=== PATIENT | female | born 1975 | race Hispanic/Latino ===

== ENCOUNTER 2018-09-14 05:26 | Inpatient (IN) | payer OTHER ==
[2018-09-14 05:26] VITALS: BMI 32.8
[2018-09-14] MEDS ORDERED: levETIRAcetam 1000mg/100ml NS 100 ML IV ONE (06:11)
--- NOTE | 2018-09-14 06:21 | ED PDOC ---
Arrival/HPI - General Chief Complaint: Seizure Historian: Patient - History of Present Illness Narrative History of Present Illness (Text): 09/14/18 06:18 42 year old female, with a past medical history of seizures and diabetes, presents to the emergency department for evaluation status post seizure. Patient states she was at work at [employer] when her coworkers told her she had a seizure. Patient states she was diagnosed with seizure disorder but has been seizure free, and off medication for 5 years. Patient denies any complaints except that her left pinky hurts. Patient denies any fevers, chills, headache, dizziness, chest pain, shortness of breath, cough, abdominal pain, nausea, vomiting, diarrhea, back pain, neck pain, or any other complaint. Time/Duration: Prior to Arrival Symptom Course: Improving Context: Work Past Medical History - Provider Review Nursing Documentation Reviewed: Yes - Infectious Disease Hx of Infectious Diseases: None - Tetanus Immunization Tetanus Immunization: Unknown - Past Medical History Past Medical History: No Previous - Cardiac Hx Cardiac Disorders: No - Pulmonary Hx Respiratory Disorders: No - Neurological Hx Seizures: Yes - HEENT Hx HEENT Disorder: Yes (pt is hard of hearing) - Renal Hx Renal Disorder: No - Endocrine/Metabolic Hx Endocrine Disorders: No - Hematological/Oncological Hx Blood Disorders: No - Integumentary Hx Dermatological Disorder: No - Musculoskeletal/Rheumatological Hx Musculoskeletal Disorders: No - Gastrointestinal Hx Gastrointestinal Disorders: No - Genitourinary/Gynecological Hx Genitourinary Disorders: No - Psychiatric Hx Depression: No Hx Emotional Abuse: No Hx Physical Abuse: No Hx Substance Use: No - Surgical History Hx Tonsillectomy: Yes - Anesthesia Hx Anesthesia: Yes Hx Anesthesia Reactions: No Hx Malignant Hyperthermia: No - Suicidal Assessment Feels Threatened In Home Enviroment: No Family/Social History - Physician Review Nursing Documentation Reviewed: Yes Family/Social History: No Known Family HX Smoking Status: Light Smoker < 10 Cigarettes Daily Hx Alcohol Use: No Hx Substance Use: No Allergies/Home Meds Allergies/Adverse Reactions: Allergies No Known Allergies Allergy (Verified 04/15/12 06:52) Home Medications: Home Meds Medication Instructions Recorded Confirmed Cetirizine HCl [Zyrtec Allergy] 10 mg PO DAILY 09/14/18 09/14/18 MetFORMIN ER [Glucophage XR] 500 mg PO DAILY 09/14/18 09/14/18 Review of Systems - Physician Review All systems were reviewed & negative as marked: Yes - Review of Systems Constitutional: absent: Fevers, Night Sweats Respiratory: absent: SOB, Cough Cardiovascular: absent: Chest Pain Gastrointestinal: absent: Abdominal Pain, Diarrhea, Nausea, Vomiting Musculoskeletal: Myalgias (left pinky pain). absent: Back Pain, Neck Pain Neurological: Seizure. absent: Headache, Dizziness Physical Exam Vital Signs Reviewed: Yes Vital Signs Temp Pulse Resp BP 09/14/18 05:44 127/68 09/14/18 05:36 98.1 F 115 H 18 Temperature: Afebrile Blood Pressure: Normal Pulse: Tachycardic Respiratory Rate: Normal Appearance: Positive for: Well-Appearing, Non-Toxic, Comfortable Pain Distress: None Mental Status: Positive for: Alert and Oriented X 3 - Systems Exam Head: Present: Atraumatic, Normocephalic Pupils: Present: PERRL Extroacular Muscles: Present: EOMI Conjunctiva: Present: Normal Mouth: Present: Moist Mucous Membranes Neck: Present: Normal Range of Motion Respiratory/Chest: Present: Clear to Auscultation, Good Air Exchange. No: Respiratory Distress, Accessory Muscle Use Cardiovascular: Present: Regular Rate and Rhythm, Normal S1, S2. No: Murmurs Abdomen: No: Tenderness, Distention, Peritoneal Signs Back: Present: Normal Inspection Upper Extremity: Present: Tenderness, Swelling (to the base of left pinky), Other (contusion). No: Cyanosis, Edema Lower Extremity: Present: Normal Inspection. No: Edema Neurological: Present: GCS=15, CN II-XII Intact, Speech Normal Skin: Present: Warm, Dry, Normal Color. No: Rashes Psychiatric: Present: Alert, Oriented x 3, Normal Insight, Normal Concentration Medical Decision Making ED Course and Treatment: 09/14/18 06:25 Impression: 42 year old female presents for evaluation of seizure Plan: -- CT Head -- EKG -- Labs -- Kepra -- Urinalysis -- Reassess and disposition Prior Visits: Notes and results from previous visits were reviewed. Progress Notes: 09/14/18 Pt signed out to Dr. Alfonso at shift change pending CT head, xray left hand and disposition. - RAD Interpretation Radiology Orders: 09/14/18 06:12 HEAD W/O CONTRAST [CT] Stat - Medication Orders Current Medication Orders: Levetiracetam (Keppra 1000mg/100ml Ns) 100 mls @ 440 mls/hr IV ONCE ONE Stop: 09/14/18 06:24 - Transfer of Care Patient signed out to Dr:: Kaden Pending radiology studies:: CT head; hand xray Other: dispo - Scribe Statement The provider has reviewed the documentation as recorded by the Scribe Tai Peña Provider Scribe Attestation: All medical record entries made by the Scribe were at my direction and personally dictated by me. I have reviewed the chart and agree that the record accurately reflects my personal performance of the history, physical exam, medical decision making, and the department course for this patient. I have also personally directed, reviewed, and agree with the discharge instructions and disposition. Disposition/Present on Arrival - Present on Arrival Any Indicators Present on Arrival: No History of DVT/PE: No History of Uncontrolled Diabetes: No Urinary Catheter: No History of Decub. Ulcer: No History Surgical Site Infection Following: None - Disposition Have Diagnosis and Disposition been Completed?: Yes Diagnosis: Finger fracture, Seizure, Mass of cerebellum Disposition: HOSPITALIZED Disposition Time: 07:00 Patient Plan: Admission Patient Problems: Current Active Problems Problem Status Onset Finger fracture Acute Mass of cerebellum Acute Seizure Acute Condition: STABLE
[2018-09-14 06:51] LABS: BASO # 0.05 K/mm3 (0.0-2.0); BASO % 0.5 % (0.0-3.0); EOS # 0.2 (0.0-0.7); EOS % 2.2 % (1.5-5.0); GRAN # 7.35 (1.4-6.5); GRAN % 78.1 % (50.0-68.0); HEMOGLOBIN 15.2 g/dL (12.0-16.0); LYMPH # 1.3 (1.2-3.4); LYMPH % 13.9 % (22.0-35.0); MEAN CELL VOLUME 93.2 fl (80.0-105.0); MEAN CORPUSCULAR HEMOGLOBIN 31.4 pg (25.0-35.0); MEAN CORPUSCULAR HGB CONC 33.7 g/dl (31.0-37.0); MEAN PLATELET VOLUME 9.3 fl (7.0-11.0); MONO # 0.5 (0.1-0.6); MONO % 5.3 % (1.0-6.0); RBC 4.84 10^6/uL (3.5-6.1); RED CELL DISTRIBUTION WIDTH 13.8 % (11.5-14.5); WHITE BLOOD COUNT 9.4 10^3/uL (4.5-11.0)
[2018-09-14 07:05] LABS: ALB/GLOB RATIO 1.1 (1.1-1.8); ALT/SGPT 34 U/L (7-56); AST/SGOT 55 U/L (14-36); BLOOD UREA NITROGEN 18 mg/dL (7-21); GFR NON-AFRICAN AMERICAN > 60
--- NOTE | 2018-09-14 07:32 | ED PDOC ---
Physical Exam Vital Signs Reviewed: Yes Vital Signs Temp Pulse Resp BP 09/14/18 05:44 127/68 09/14/18 05:36 98.1 F 115 H 18 Temperature: Afebrile Pulse: Tachycardic Respiratory Rate: Normal Appearance: Positive for: Well-Appearing Medical Decision Making ED Course and Treatment: 09/14/18 07:29 Patient endorsed to me by Dr. Barajas. Patient is a 42 year old female presenting to the emergency department for a seizure episode. Currently pending test and Head CT. 09/14/18 09:13 PROCEDURE: CT HEAD WITHOUT CONTRAST. HISTORY: seizure COMPARISON: None available. TECHNIQUE: Axial computed tomography images were obtained through the head/brain without intravenous contrast. Radiation dose: Total exam DLP = 948.57 mGy-cm. This CT exam was performed using one or more of the following dose reduction techniques: Automated exposure control, adjustment of the mA and/or kV according to patient size, and/or use of iterative reconstruction technique. FINDINGS: HEMORRHAGE: No intracranial hemorrhage. BRAIN: There is mass like lesion at the medial inferior aspect of the left cerebellum demonstrate mild increased density compared to the adjacent cerebellar parenchyma measures 2.6 centimeter in the AP diameter and 2.2 centimeter in the transverse diameter. The possibility of neoplasm or other etiology should be excluded. Further assessment by MRI is recommended. Mild volume loss is noted. VENTRICLES: Unremarkable. No hydrocephalus. CALVARIUM: Unremarkable. PARANASAL SINUSES: Unremarkable as visualized. No significant inflammatory changes. MASTOID AIR CELLS: Unremarkable as visualized. No inflammatory changes. OTHER FINDINGS: None. IMPRESSION: No evidence of acute intracranial hemorrhage. Suspicious for mass or brain lesion at the medial inferior aspect of the left cerebellum. Further assessment by enhanced MRI is suggested. Mild volume loss. The above findings were reported to the ER physician taking care of the patient at 9 a.m. on 09/14/2018. Dictator: Patito Samayoa MD 09/14/18 11:[address] shows ?mass. discussed with dr buitrago accepts. requests dr mera consult. finger splinted. - Lab Interpretations Lab Results: 09/14/18 06:30 09/14/18 06:30 Lab Results 09/14/18 06:30: Alcohol, Quantitative < 10 09/14/18 06:30: Sodium 138, Potassium 4.2, Chloride 104, Carbon Dioxide 27, Anion Gap 11, BUN 18, Creatinine 1.0, Est GFR ( Amer) > 60, Est GFR (Non- Af Amer) > 60, Random Glucose 113 H, Calcium 9.0, Phosphorus 1.5 L, Magnesium 2.1, Total Bilirubin 0.5, AST 55 H, ALT 34, Alkaline Phosphatase 104, Total Protein 7.6, Albumin 4.0, Globulin 3.6, Albumin/Globulin Ratio 1.1 09/14/18 06:30: WBC 9.4, RBC 4.84, Hgb 15.2, Hct 45.1, MCV 93.2, MCH 31.4, MCHC 33.7, RDW 13.8, Plt Count 352, MPV 9.3, Gran % 78.1 H, Lymph % (Auto) 13.9 L, [place] % (Auto) 5.3, Eos % (Auto) 2.2, Baso % (Auto) 0.5, Gran # 7.35 H, Lymph # (Auto) 1.3, [place] # (Auto) 0.5, Eos # (Auto) 0.2, Baso # (Auto) 0.05 - RAD Interpretation Radiology Orders: 09/14/18 06:12 HEAD W/O CONTRAST [CT] Stat - Medication Orders Current Medication Orders: Discontinued Medications Levetiracetam (Keppra 1000mg/100ml Ns) 100 mls @ 440 mls/hr IV ONCE ONE Stop: 09/14/18 06:24 Last Admin: 09/14/18 07:11 Dose: 440 mls/hr eMAR Start Stop Document 09/14/18 07:11 VALERIANO (Rec: 09/14/18 07:11 VALERIANO [id number]) Intravenous Solution Start Date 09/14/18 Start Time 07:11 End Date 09/14/18 End time 07:25 Total Infusion Time 14 Disposition/Present on Arrival - Present on Arrival Any Indicators Present on Arrival: No History of DVT/PE: No History of Uncontrolled Diabetes: No Urinary Catheter: No History of Decub. Ulcer: No History Surgical Site Infection Following: None - Disposition Have Diagnosis and Disposition been Completed?: Yes Diagnosis: Finger fracture, Seizure, Mass of cerebellum Disposition: HOSPITALIZED Disposition Time: 10:30 Condition: STABLE
[2018-09-14 08:39] LABS: URINE APPEARANCE CLEAR (CLEAR); URINE BILIRUBIN NEGATIVE (NEGATIVE); URINE BLOOD LARGE (NEGATIVE); URINE COLOR LIGHT YELLOW (YELLOW); URINE GLUCOSE (UA) NEGATIVE (NEGATIVE); URINE LEUKOCYTE ESTERASE NEGATIVE Leu/uL (NEGATIVE); URINE PROTEIN NEGATIVE mg/dL (<30 mg/dL); URINE UROBILINOGEN 0.2 E.U./dL (<1 E.U./dL)
[2018-09-14 09:00] LABS: URINE BACTERIA NEG (NEG); URINE EPITHELIAL CELLS 0 - 2 /hpf (0-5); URINE WBC 0 - 2 /hpf (0-6)
--- NOTE | 2018-09-14 09:07 | CT ---
Date of service: 09/14/2018 PROCEDURE: CT HEAD WITHOUT CONTRAST. HISTORY: seizure COMPARISON: None available. TECHNIQUE: Axial computed tomography images were obtained through the head/brain without intravenous contrast. Radiation dose: Total exam DLP = 948.57 mGy-cm. This CT exam was performed using one or more of the following dose reduction techniques: Automated exposure control, adjustment of the mA and/or kV according to patient size, and/or use of iterative reconstruction technique. FINDINGS: HEMORRHAGE: No intracranial hemorrhage. BRAIN: There is mass like lesion at the medial inferior aspect of the left cerebellum demonstrate mild increased density compared to the adjacent cerebellar parenchyma measures 2.6 centimeter in the AP diameter and 2.2 centimeter in the transverse diameter. The possibility of neoplasm or other etiology should be excluded. Further assessment by MRI is recommended. Mild volume loss is noted. VENTRICLES: Unremarkable. No hydrocephalus. CALVARIUM: Unremarkable. PARANASAL SINUSES: Unremarkable as visualized. No significant inflammatory changes. MASTOID AIR CELLS: Unremarkable as visualized. No inflammatory changes. OTHER FINDINGS: None. IMPRESSION: No evidence of acute intracranial hemorrhage. Suspicious for mass or brain lesion at the medial inferior aspect of the left cerebellum. Further assessment by enhanced MRI is suggested. Mild volume loss. The above findings were reported to the ER physician taking care of the patient at 9 a.m. on 09/14/2018.
[2018-09-14 09:15] LABS: BARBITURATES, UR NEGATIVE (NEGATIVE); BENZODIAZEPINES, UR NEGATIVE (NEGATIVE); OPIATES, UR NEGATIVE (NEGATIVE); PHENCYCLIDINE, UR NEGATIVE (NEGATIVE)
--- NOTE | 2018-09-14 10:54 | RAD ---
PROCEDURE: Left Hand Radiographs. She HISTORY: 5th digit swelling COMPARISON: None. FINDINGS: BONES: Acute fracture base of proximal phalanx left 5th metacarpal. There does not appear to be an intra-articular component. JOINTS: Normal. No osteoarthritic changes. SOFT TISSUES: Soft tissue swelling attests to the acuity of the fracture. OTHER FINDINGS: None. IMPRESSION: Acute fracture proximal phalanx left 5th digit.
[2018-09-14] MEDS: Insulin Reg-LOW-Coverage SC SCH ×2 (11:34→22:33)
--- NOTE | 2018-09-14 11:47 | US ---
Date of service: 09/14/2018 HISTORY: elevated lfts COMPARISON: None. TECHNIQUE: Sonographic evaluation of the abdomen. FINDINGS: LIVER: Measures 20.1 cm. Hepatopedal blood flow. Fatty infiltration manifest ultrasonographically as increased echogenicity of the liver parenchyma. No mass. No intrahepatic bile duct dilatation. GALLBLADDER: Unremarkable. No gallstones. COMMON BILE DUCT: Measures 5.1 mm. No stones. No dilatation. PANCREAS: Unremarkable as visualized. No mass. No ductal dilatation. RIGHT KIDNEY: Measures 4.3 x 10.6cm. Normal echogenicity. No calculus, mass, or hydronephrosis. LEFT KIDNEY: Measures 5.1 x 11.0cm. Normal echogenicity. No calculus, mass, or hydronephrosis. SPLEEN: Normal in size and contour. No mass. AORTA: No aneurysmal dilatation. IVC: Unremarkable. OTHER FINDINGS: None. IMPRESSION: Hepatomegaly, hepatic steatosis. Otherwise unremarkable study.
--- NOTE | 2018-09-14 12:06 | HP ---
DATE OF EXAM: 09/14/2018 HISTORY OF PRESENT ILLNESS: This 42-year-old female was examined in bed 3 of the emergency room at the [facility] on the morning of 09/14/2018. Present for the interview was her sister Deneen. The patient is a 42-year-old female with history of seizures and noncompliance with outpatient anti-epileptic medication. She is employed at the local [employer] and states that last evening when she presented to work during her shift, she felt fuzzy. 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 Apparently she was witnessed to have a grand mal seizure and was sent to the [facility] for further evaluation of the above. On further questioning of the patient, she states that she had followed up with Dr. Oziel Donis from Neurology in the past and had been placed on Keppra as an antiepileptic, but stopped taking the medication almost 5 years ago. PAST MEDICAL HISTORY: She also states that she has a history of type 2 diabetes mellitus for which she is prescribed metformin which she is also noncompliant with. The patient is obese. SOCIAL HISTORY: She states she is a nondrinker, nonsmoker, non IV drug misuser. ALLERGIES: DENIED ANY ALLERGIES TO MEDICATION. FAMILY HISTORY: Significant, that her father of lung cancer. Her mother of septic shock after a knee transplant and there is no other family member with seizure activity that she knows of. PAST SURGICAL HISTORY: The patient is status post tonsillectomy and denied any other surgical history. REVIEW OF SYSTEMS: CONSTITUTIONAL: She denied fever or chills. HEAD: Denied any knowledge of head trauma. EYES: No change in visual acuity. EARS: No hearing loss. THROAT: No swallowing difficulty. NECK: No stiffness. CARDIAC: No knowledge of hypertension or myocardial infarction. PULMONARY: No cough. No hemoptysis. GASTROINTESTINAL: No GERD. GENITOURINARY: No dysuria. SKIN: No rash. VASCULAR: No claudication. PSYCHOLOGIC: No knowledge of depression. ENDOCRINOLOGIC: Type 2 diabetes mellitus. The patient states she is actively menstruating at present. PHYSICAL EXAMINATION: GENERAL: The patient was alert, oriented, lying on a emergency room cot with her right hand bandaged in a splint. VITAL SIGNS: Temperature 98.1, respirations 16, pulse 109, and blood pressure 127/68 with a pulse ox of 100% room air. HEENT: Head normocephalic, atraumatic. Eyes; no icterus. Ears; clear. Throat; non-injected. NECK: Supple. HEART: S1, S2. LUNGS: Clear. ABDOMEN: Obese. No palpable organomegaly. No rebound, no guarding. No tenderness. EXTREMITIES: No edema. SKIN: Without rash. NEUROLOGIC: Grossly intact. PSYCHOLOGIC: Alert and oriented x3. VASCULAR: Legs warm to touch. LABORATORY DATA: White count 9400, hemoglobin 15.2, hematocrit 45.1, Sodium 138, K 4.2, chloride 104, bicarb 27, BUN 18, creatinine 1.0, random blood sugar 113, calcium 9.0. Phosphorous 1.5, magnesium 2.1. Bilirubin 0.5, AST 55, ALT 34, alk phos 104, albumin 4.0. Urinalysis showed large blood, negative bacteria. Urine drug screen was negative. Head CT was reviewed, there is a mass-like lesion at the medial inferior aspect of the left cerebellum demonstrated with mild increased density compared to the adjacent cerebellar parenchyma measuring 2.6 cm in the AP diameter and 2.2 cm in the transverse diameter. The possibility of neoplasm or other etiology should be excluded and further assessment by MRI is recommended. There is no evidence of acute intracranial hemorrhage. Hand x-ray, EKG, and chest x-rays are pending. IMPRESSION: A 42-year-old female with history of seizure syndrome. She is without a personal driver's license and also with history of obesity and probable fracture to her right hand fifth digit as well as history of type 2 diabetes mellitus, now being admitted with recurrent seizure, rule out brain neoplasm. PLAN: At present is to admit this patient to the cardiac unit. She will be placed on seizure precautions. A left hand 3-view x-ray has been requested and the patient is currently in a splint while awaiting orthopedic evaluation by Dr. Apolinar Worrell from Orthopedics. The patient was loaded with 1000 mg of Keppra and is awaiting a neurological consultation with Dr. Gunnar Alarcon for further instructions regarding MRI request. The patient will be scheduled for chest x-ray. She will have blood sugars checked a.c. meals and at bedtime with low-dose insulin protocol. I will order a lipid panel at T4 level. Chest x-ray, seizure precautions, EEG and based on her clinical progress, additional diagnostic workup and testing will be entertained. All of the above was reviewed in detail with the patient and her sister Deneen at the bedside. Greater than 75 minutes was spent in the care management, review of labs, orders and x-rays. All questions were answered. Case was reviewed with emergency room nursing as well. Tana Solano MD MTDD
--- NOTE | 2018-09-14 12:28 | RAD ---
Date of service: 09/14/2018 HISTORY: routine COMPARISON: 12/17/2015 TECHNIQUE: Chest PA and lateral FINDINGS: LUNGS: No active pulmonary disease. PLEURA: No significant pleural effusion identified. No pneumothorax apparent. CARDIOVASCULAR: No aortic atherosclerotic calcification present. Normal cardiac size. No pulmonary vascular congestion. OSSEOUS STRUCTURES: No significant abnormalities. VISUALIZED UPPER ABDOMEN: Normal. OTHER FINDINGS: None. IMPRESSION: No active disease. No significant interval change compared to the prior examination(s).
--- NOTE | 2018-09-14 15:43 | CON ---
DATE: 09/14/2018 NEUROLOGY FOLLOWUP CHIEF COMPLAINT: Seizure. HISTORY OF PRESENTING ILLNESS: A 42-year-old woman with history of seizures in 2005, was on Keppra 5 mg p.o. b.i.d. at that time and has been off seizure medicines for the past five years. She sees her neurologist named Dr. Oziel Donis and stopped her antiepileptic medication five years ago. History of type 2 diabetes mellitus, on metformin, obese, who was at [employer] at her job and all of sudden she started to feel fuzzy during her work shift and lightheaded and had passed out. Apparently, she had generalized tonic-clonic chronic event with postictal confusion. She underwent a CAT scan of her head at [facility], which showed a questionable brain lesion at the medial inferior aspect of the left cerebellum, which was incidental and which is not late for underlying seizure since this is in the cerebellar area. She was given 1 g of Keppra in the ER and I placed her on 500 mg p.o. b.i.d. No further seizure. She has history of sleep deprivation. PAST MEDICAL HISTORY: As above. SOCIAL HISTORY: No illicit drug use, smoking or EtOH abuse. ALLERGIES: NO KNOWN DRUG ALLERGIES. MEDICATIONS: Reviewed by nurse's reconciliation sheet. REVIEW OF SYSTEMS: A 14-point review of systems is negative except as per HPI. PHYSICAL EXAMINATION: VITAL SIGNS: Temperature 97.1, pulse rate 89, blood pressure 141/81, respiratory rate 20, oxygen saturation 100% by room. GENERAL: The patient is seen up on bed, in no acute distress. HEENT: Atraumatic, normocephalic. PERRLA. Extraocular muscles intact. NECK: Supple. No JVD. No adenopathy. LUNGS: Clear to auscultation. No adventitious sounds. HEART: S1 and S2. Normal rate and rhythm. No murmurs, rubs or gallops. ABDOMEN: Soft, nontender and nondistended. Bowel sounds are present. EXTREMITIES: No clubbing. No cyanosis. Peripheral pulses 2+ felt bilaterally. NEUROLOGIC: The patient is alert, oriented to person, place, month and year. Speech is without errors. Poor attention span, slow thought process. Recall after five minutes is 1/3. Speech is fluent. No aphasia noted. Cranial nerves II through XII intact. Motor: Moves all extremities equally. No pronator drift seen. Sensory: decreased light touch and pinprick to calves. Decreased vibration of the toes. DTRs 2+ throughout. Coordination: [id number] is intact. No dysmetria noted. Gait is deferred for now. LABORATORY DATA: Sodium is 138, potassium 4.2, chloride 104, carbon dioxide 27, BUN of 18, creatinine 1, random glucose 113. IMPRESSION: This is a 42-year-old woman with history of seizure disorder since 2005 and is off antiepileptic for the past five years. She sees Dr. Oziel Donis as neurologist, history of type 2 diabetes mellitus, obesity, had a breakthrough seizure, which is likely secondary to sleep deprivation. The seizures are unlikely secondary to the incidental inferior medial aspect of the left cerebellum mass looking type feature, which is incidental and nothing related to her underlying seizures since it is in the cerebellum area. RECOMMENDATIONS: 1. At this time we will get an MRI of the brain to assess the incidental finding on the CAT scan of the left cerebellum mass like looking brain lesion. 2. Keppra 500 mg p.o. b.i.d. 3. We will consider to do her EEG as an outpatient with her neurologist since she has a neurologist, Dr. Oziel Donis. 4. We will continue with current present medical management and advise sleep hygiene. Gunnra Alarcon MD
[2018-09-14 16:28] LABS: HEPATITIS B SURFACE AG Negative (NEGATIVE)
[2018-09-14 16:33] LABS: HEPATITIS A IGM NEGATIVE (NEGATIVE); HEPATITIS B CORE AB NEGATIVE (NEGATIVE)
[2018-09-14 16:45] LABS: HEPATITIS C ANTIBODY NEGATIVE (NEGATIVE)
--- NOTE | 2018-09-14 19:25 | CARD ---
APPROVED REPORT Date of service: 09/14/2018 EKG Measurement Heart [id number] <Conclusion> Sinus tachycardia Possible Left atrial enlargement Borderline ECG
[2018-09-14] MEDS ORDERED: Gadodiamide 287 MG/ML VIAL (15ML) IV ONE (21:05)
[2018-09-15] MEDS: Insulin Reg-LOW-Coverage SC SCH ×4 (08:01→22:00)
--- NOTE | 2018-09-15 18:21 | MRI ---
Date of service: 09/14/2018 PROCEDURE: MRI BRAIN WITH AND WITHOUT CONTRAST HISTORY: seizure COMPARISON: None available. TECHNIQUE: Multiplanar, multisequence MR images of the brain were obtained with and without intravenous contrast enhancement (Omniscan 15 cc). FINDINGS: HEMORRHAGE: None DWI: No evidence of an acute or early subacute infarction. BRAIN PARENCHYMA: There are a few punctate long TR hyperintensities identified in the subcortical white matter of the bilateral parietal lobes with the corpus callosum normal as well as remaining white matter is well. There is no mass effect. Gonzalez matter is unremarkable good good corticomedullary parenchymal differentiation is preserved throughout. Posterior fossa contents appear unremarkable including the brainstem. No suspicious extra-axial collection. No mass effect. ENHANCEMENT: No abnormal intracranial enhancement. VENTRICLES: Unremarkable. No hydrocephalus. CRANIUM: Unremarkable. ORBITS: Grossly unremarkable. PARANASAL SINUSES/MASTOIDS: Clear VASCULAR SYSTEM: Skull base flow voids intact. OTHER FINDINGS: None . IMPRESSION: There are a few scattered subcortical parietal long TR hyperintensities with no abnormal intracranial enhancement appreciated in the remaining white matter well-preserved including the corpus callosum. This is a nonspecific pattern could reflect demyelination, vasculitis Lyme disease and others including hypertension and migraine headaches. Further clinical correlation recommended. The remainder the brain is normal appearing.
[2018-09-16] MEDS: Insulin Reg-LOW-Coverage SC SCH ×4 (07:34→21:31)
--- NOTE | 2018-09-16 14:20 | PN ---
DATE: 09/15/2018 SUBJECTIVE: This 42-year-old female was examined at her bedside in the presence of her sister, Deneen, on the cardiac chapa at the [facility] on the afternoon of 09/15/2018. The patient was alert. She was complaining of mild discomfort in her fractured left hand fifth metacarpal and is awaiting evaluation by Dr. Apolinar Worrell and at present has her fourth and fifth digits buddied in a bandage together. She was admitted with seizure syndrome and an abnormal CT and at present an MRI of her brain is pending. PHYSICAL EXAMINATION: VITAL SIGNS: She was in normal sinus rhythm on the cardiac technologist and temperature was 98.7, respirations 20, pulse 70, blood pressure 142/75 and pulse ox 98% on room air. Physical exam was unchanged. LABORATORY DATA: White count 9400, hemoglobin 15.2, hematocrit 45.1, platelets are 352,000. Random blood sugar 81. Phosphorous 3.3, normal. AST 35, ALT 34, normal. Cholesterol 146, triglycerides 189, LDL 92 and HDL 30. Urinalysis showed no bacteria. Urine drug screen was unremarkable and hepatitis A, B, C serologies were negative. IMPRESSION: A 42-year-old female admitted with seizure syndrome, newly fractured left hand fifth metacarpal bone, obesity, hyperlipidemia and history of seizure syndrome for which she is noncompliant with antiepileptics, and also hypertriglyceridemia and history of type 2 diabetes mellitus. PLAN: The plan at present is to maintain the patient on cardiac chapa seizure precautions, diabetic diet while awaiting neurological evaluation of cerebellar mass in the setting of seizure seen on admission CT evaluation while continuing insulin low-dose protocol coverage and also Keppra 500 mg p.o. b.i.d. and Tylenol p.r.n. pain or temperature. She is awaiting an EEG sleep and awake study and evaluations by Neurology and Orthopedics and based on results of the above, additional diagnostic workup and testing will be entertained. All of the above was reviewed in detail with the patient, her sister Deneen and nurse, Corrina Alfredo, registered nurse. All questions were answered Tana Solano MD [facility] # [id number] MTDJosep
[2018-09-17 06:26] VITALS: O2SAT 95
--- NOTE | 2018-09-17 08:05 | PN ---
DATE: 09/16/2018 SUBJECTIVE: This 42-year-old female remains hospitalized having experienced a seizure while at work at the [facility] [employer] on 09/14/2018. She has been seen by Dr. Gunnar Alarcon from Neurology regarding seizure issue as well as left cerebellar mass like looking issue on her brain CT. Also the patient is tolerating Keppra 500 mg p.o. b.i.d. and has been advised repeatedly regarding the need to be consistent in this medication, which she was reluctant to do in her past. She did have a brain MRI completed and reviewed by Dr. Rasta Lozoya. It noted a few scattered subcortical parietal long hyperdensities with no abnormal intracranial enhancement appreciated in her white matter and there is a nonspecific pattern, which could reflect demyelinization vasculitis Lyme disease with the remainder of the brain appearing normal. No mention of a cerebellar mass was noted. PHYSICAL EXAMINATION: VITAL SIGNS: Her temperature is 98.7, respirations 18, pulse 68 and blood pressure 120/66. LABORATORY DATA: All labs were reviewed with a blood sugar today of 97 and a triglyceride level of 189. IMPRESSION: An obese 42-year-old female with recurrent seizure and history of type 2 diabetes mellitus and a newly fractured left fifth metacarpal that is now being treated with budding of her fifth and fourth fingers together as recommended by Dr. Apolinar Worrell from Orthopedics. PLAN: At present is to continue regular low-dose insulin protocol a.c. meals h.s., Keppra 500 mg p.o. b.i.d. and p.r.n. Tylenol for pain. She is awaiting EEG sleep and awake. She continues on a diabetic diet, seizure precautions. I will ask Dr. Gunnar Alarcon if he has any further recommendations given the MRI results and we will ask Dr. Apolinar Worrell if the patient can return to work or should remain out on disability given her fifth metacarpal fracture. The patient will need outpatient followup regarding all of the above and it was discussed at her bedside with family present. Tana Solano MD MTDJosep
--- NOTE | 2018-09-17 08:18 | CON ---
DATE: 09/14/2018 ORTHOPEDIC REPORT HISTORY OF PRESENT ILLNESS: The patient is a 42-year-old female had medical emergency at work and she fell and fractured her proximal phalanx of the fifth digit left hand. She came to emergency room and I was called to see her soon after. I am seeing the patient with ecchymotic left thumb nondominant hand with x-ray evidence of transverse fracture portion of the proximal phalanx of her fifth digit left hand. It is a nonarticular fracture mildly, but in good position only, it does not need any surgery, but we took off the splint that she had on and put her in a danae tape splint so she could do some active range of motion and is to make sure wound . We will see her in the office in 10 days evaluate for healing and we will give her some surprise so she could change it if she has too at home. FINAL DIAGNOSES: Stable proximal phalanx fracture of fifth digit left hand. I am treated with the danae taping splint and can do gentle range of motion and I will see her in 10 days in the office. Apolinar Worrell DO
[2018-09-17] MEDS: Insulin Reg-LOW-Coverage SC SCH ×2 (08:43→12:49)
--- NOTE | 2018-09-17 12:43 | DS ---
DATE: 09/17/2018 SUBJECTIVE: This 42-year-old female remains hospitalized, awaiting sleep and awake EEG after presenting with a grand all seizure. I have discussed this case with Dr. Gunnar Alarcon from Neurology who will be reviewing her MRI and providing further recommendations regarding initial presentation. I did review the case with Dr. Apolinar Worrell from Orthopedics who does feel that the patient has a fracture of her fifth proximal phalanx of her hand that will require followup in his office within 10 days. 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 PHYSICAL EXAMINATION: VITAL SIGNS: Temperature is 99, respirations 20, pulse 75 and blood pressure 118/75 with a pulse ox of 95%. She is in a normal sinus rhythm on the manager cardiac cath her physical exam remains unchanged. LABORATORY DATA: White count 9400, hemoglobin 15.2, hematocrit 45.1, platelets 352,000. Random blood sugar 85. Phosphorous 3.3, AST 35, ALT 34, cholesterol 146, triglycerides 189, LDL 92, HDL 30. Abdominal ultrasound consistent with hepatic steatosis. IMPRESSION AND PLAN: A 42-year-old female with a current grand mal seizure, morbid obesity, history of type 2 diabetes mellitus and hypertriglyceridemia now with a fractured left fifth proximal phalanx of her hand and plan is to await Neurology evaluation regarding MRI of her brain. She continues to await sleep and awake EEGs. She is continuing on Keppra 500 mg p.o. twice a day, insulin coverage before meals and at bedtime. Her fourth and fifth digits of the left hand remained buddied bandaged. She will follow up with Dr. Apolinar Worrell in his office as an outpatient. She remains on seizure precautions and further workup will be pending evaluation by Dr. Gunnar Alarcon from Neurology. She continues on a diabetic heart-healthy weight reduction diet and was advised to take Fish oil 1200 mg p.o. twice a day and to avoid sweets as an outpatient. All of the above was reviewed with the patient and her sister Deneen at bedside. All questions were answered. Tana Solano MD [facility] # [id number] MTDJosep
[2018-09-17 13:08] VITALS: BP 134/92; PULSE 69; RESP 21; TEMP 97.3
--- NOTE | 2018-09-17 13:11 | PCM.EEG ---
Electroencephalogram Report - Electroencephalogram Report Procedure Date: 09/14/18 Medication: Keppra. Interpretation: Technical Information: This was a 16 -channel EEG, 1-channel EKG routine EEG performed using an Proterra machine. Electrodes were applied using the 10/20 international placement system. Start; 16;21 End; 17;08 Total time; 47 min. Clinical Information: 42 y/o woman with recurrent seizures. During resting wakefulness there was a symmetric posterior dominant rhythm at 8.5-9.5 Hz, 30-50 uV, which was reactive to eye opening and closing. Drowsiness seen at 16;46 was associated with fragmentation of the posterior dominant rhythm and with slow roving eye movements. Hyperventilation was not performed. Photic stimulation was performed and there were no changes on the record. Focal abnormality; none ECG was associated with a normal sinus rhythm. Impression: This is a normal awake and drowsy electroencephalogram.
[2018-09-17] MEDS ORDERED: Pneumococcal 23-Valent Vaccine IM ONE (14:07)
--- NOTE | 2018-09-17 15:34 | PN ---
NEUROLOGY FOLLOWUP DATE: 09/17/2018 CHIEF COMPLIANT: Followup for seizures. SUBJECTIVE: The patient was sitting up at the edge of bed. No acute distress. No further seizures in the hospital. EEG was normal. MRI of the brain showed no acute intracranial abnormalities or chronic ischemic changes. PAST MEDICAL HISTORY: History of seizures in 2006, he was on Keppra, history of type II diabetes mellitus on metformin, and obesity. REVIEW OF SYSTEM: A 14-point review of systems is negative except per the HPI. MEDICATIONS: Reviewed by nurse's reconciliation sheet. ALLERGIES: NO KNOWN DRUG ALLERGIES. LABORATORY DATA: No new. Today's blood sugar was 85. PHYSICAL EXAMINATION GENERAL: The patient is sitting up on bed and in no acute distress. VITAL SIGNS: Temperature 97.3, pulse rate 69, blood pressure 118/75, respiratory rate 20 and oxygen saturation 95% on room air. HEENT: Atraumatic, normocephalic. PERRLA. Extraocular muscles intact. NECK: Supple. No JVD. No adenopathy. LUNGS: Clear to auscultation. No adventitious sounds. HEART: S1 and S2. Normal rate and rhythm. No murmurs, rubs or gallops. ABDOMEN: Soft, nontender and nondistended. Bowel sounds are present. EXTREMITIES: No clubbing. No cyanosis. Peripheral pulses 2+ felt bilaterally. NEUROLOGICAL: The patient is alert and oriented to person, place, month, and year. Speech is fluent without any errors. Cranial nerves II through XII intact. Motor exam: Moves all extremities equally. No pronator drift seen. Sensory: Decreased light touch and pinprick up to the calves bilaterally. Decreased vibration of the toes. DTRs are 2+ throughout and 1 at both knees and ankles. Coordination: [id number] is intact. No dysmetria noted. Gait is deferred for now. IMPRESSION: A 42-year-old woman with history of seizure disorder since 2005 and is off antiepileptic drugs for the past five years, sees Dr. Oziel Donis, Neurologist, history of type II diabetes mellitus, obesity and breakthrough seizure secondary to sleep deprivation. MRI of the brain showed no acute intracranial abnormality. EEG was normal. RECOMMENDATIONS: At this time, I recommend to continue the Keppra 500 mg p.o. b.i.d. to followup with her neurologist as an outpatient. Gunnar Alarcon MD
--- NOTE | 2018-09-17 15:53 | EEG ---
DATE: 09/17/2018 CONDITION OF THE RECORDING: Drowsy. DIAGNOSIS: Seizure. MEDICATIONS: Keppra. INTERPRETATION: This is a 16-channel international recording. Background activity of this tracing is composed of 8 to 10 cycles per second. There was small amount of beta activity 16 to 20 cycles per second seen in this recording. There is small amount of theta activity 5 to 7 cycles per second seen in this recording. Drowsiness was characterized by mixed beta and theta activities. Sleep was characterized by vertex transient waves, sleep spindles, and bilateral slowing. Photic stimulation showed no change in the tracing. No paroxysmal activity was noted in the recording. CONCLUSION: There is an abnormal electroencephalogram. No evidence of any epileptiform activity. Please clinically correlate. Gunnar Alarcon MD
== END 2018-09-17 16:22 | disposition home or self-care (01) | DRG 101 ==
LOC: ED 05:26 → ERH 09:19 → 2RNO 11:44
PROVIDERS: ADMIT Internal Medicine; ATTEND Internal Medicine
PROC: 3E0234Z Introduction of Serum, Toxoid and Vaccine into Muscle, Percutaneous Approach (ICD-10-PCS; principal; 2018-09-17)
DX: G40.409 Other generalized epilepsy and epileptic syndromes, not intractable, without status epilepticus (principal); F05 Delirium due to known physiological condition; S62.617A Displaced fracture of proximal phalanx of left little finger, initial encounter for closed fracture; E11.9 Type 2 diabetes mellitus without complications; E66.01 Morbid (severe) obesity due to excess calories; E78.1 Pure hyperglyceridemia; E78.5 Hyperlipidemia, unspecified; Z91.19 Patient's noncompliance with other medical treatment and regimen; W18.39XA Other fall on same level, initial encounter; Y92.512 Supermarket, store or market as the place of occurrence of the external cause; Z72.820 Sleep deprivation; Z23 Encounter for immunization